=== PATIENT | female | born 1950 | race Caucasian/White ===

== ENCOUNTER → 2016-11-01 | Outpatient (CLI) | payer MEDICARE, OTHER ==
[~2016-11-01] MED LIST: ACET-732 PO; ALLO300T74 PO; ASCO-324 PO; ATEN25TA PO; CETI10TA56 PO; CITA20TA9 PO; COLE1TAB4 PO; ESTR1VAG4 VG; GABA-336 PO; GUAI120018 PO; HYDR-2540 PO; LEVO175T4 PO; LOVA20TA71 PO; MONT10TA15 PO; MULT-245 PO; PANT40TA PO; POTA10TA19 PO; ROPI0.256 PO; SUMA25TA PO; TIZA4TAB12 PO; TRAM50TA4 PO
--- NOTE | 2016-11-01 11:19 | DI ---
Indication: ITS.REASON: R22.42 SWELLING LOWER LIMB PROCEDURE: US VENOUS DUPLEX, LOWER EXT LT: Encounter: Initial Comparison: None Technique: Color Doppler duplex and grayscale sonographic imaging of the left lower extremity was performed. Findings: There is no evidence for acute deep venous thrombosis in the left thigh. Specifically, serial graded compression was performed from the inguinal ligament to the popliteal bifurcation, on the left thigh, demonstrating appropriate compressibility of the deep venous system. In addition, color and pulsed Doppler demonstrate appropriate spontaneous flow, variation with respiration, and augmentation with calf compression. At the ankle, normal flow is identified in the posterior tibial veins; these vessels are also normal in caliber. Impression: No evidence of acute DVT in the left lower limb. .
== END ==
LOC: IMA 10:01
PROVIDERS: ATTEND Family Medicine Sports Medicine
DX: R22.42 Localized swelling, mass and lump, left lower limb (principal)